=== PATIENT | male | born 1950 ===

== ENCOUNTER 2017-02-01 12:02 | Day surgery (SDC) | payer BC, OTHER ==
[2017-01-31 09:42] VITALS: BMI 22.1
[2017-02-01] MEDS ORDERED: PROPOFOL 20 ML ONE (14:29)
[2017-02-01] MEDS ORDERED: LIDOCAINE HCL/PF 2% SDV 5ML VIAL ONE (14:29)
[2017-02-01] MEDS ORDERED: DEXAMETHASONE SOD PHOSPHATE 4 MG/1 ML VIAL ONE ×2 (14:49→15:37)
[2017-02-01] MEDS ORDERED: ONDANSETRON 4 MG/2 ML VIAL ONE (14:49)
[2017-02-01] MEDS ORDERED: LIDOCAINE HCL 1%, 10 MG/ML (20ML VIAL) ONE (15:01)
[2017-02-01] MEDS ORDERED: MIDAZOLAM HCL 2 MG/2 ML SINGLE DOSE VIAL ONE (15:10)
[2017-02-01] MEDS ORDERED: LIDOCAINE HCL 2% JELLY (5 ML/TUBE) TP ONE ×2 (15:30→16:13)
[2017-02-01] MEDS ORDERED: NITROGLYCERIN 2% OINTMENT - 1GM PACKET TD ONE ×2 (15:30→16:13)
[2017-02-01] MEDS ORDERED: ePHEDrine SULFATE 50 MG/1 ML AMPULE ONE (15:43)
[2017-02-01] MEDS ORDERED: LIDOCAINE HCL 1%, 10 MG/ML (20ML VIAL) IJ ONE (15:47)
[2017-02-01] MEDS ORDERED: GLYCOPYRROLATE 0.2 MG/1 ML VIAL ONE (15:48)
--- NOTE | 2017-02-01 16:26 | OP ---
Operative Note - Note: Operative Date: 02/01/17 Pre-Operative Diagnosis: hemorrhoids grade 3-4 Operation: EUA/ hemorrhoidectomy Post-Operative Diagnosis: Same as Pre-op Surgeon: Yoshi Black Anesthesia: General Specimens Removed: hemorrhoid tissue Estimated Blood Loss (mls): 5 Operative Report Dictated: Yes
[2017-02-01] MEDS ORDERED: OXYCODONE/APAP 5/325MG COMBO TABLET PO PRN (16:29)
[2017-02-01] MEDS ORDERED: KETOROLAC TROMETHAMINE 30 MG/1 ML VIAL IVPUSH PRN (16:29)
[2017-02-01] MEDS ORDERED: oxyCODONE HCL 5 MG TABLET PO PRN (16:34)
[2017-02-01] MEDS ORDERED: ACETAMINOPHEN 325 MG TABLET (FP) PO PRN (16:34)
[2017-02-01] MEDS ORDERED: KETOROLAC TROMETHAMINE 30 MG/1 ML VIAL ONE (17:28)
[2017-02-01 17:46] VITALS: TEMP 97.5
[2017-02-01 18:51] VITALS: BP 110/74; PULSE 66
--- NOTE | 2017-02-03 13:20 | PATH ---
Surgical Pathology Report Patient Name: CONNOR RIVERS Med. Rec. #: [id number] /Age/Gender: 1950 (Age: 67) / M Account: [id number] Location: AMBULATORY SURG Taken: 02/01/2017 Received: 02/02/2017 Reported: 02/03/2017 Physicians: Yoshi Black M.D. Specimen(s) Received HEMORRHOIDS Clinical History Hemorrhoids Final Diagnosis HEMORRHOIDS, HEMORRHOIDECTOMY: BENIGN SQUAMOUS MUCOSA WITH DILATED ENGORGED BLOOD VESSELS CONSISTENT WITH HEMORRHOIDS. Electronically Signed Teddy Taylor M.D. Gross Description Received in formalin labeled "hemorrhoids" is a 3.5 x 1.4 x 1.0 cm portion of marlow, blood engorged tissue, consistent with hemorrhoids. Soil Analyst sections are submitted in one cassette. /02/02/2017 saudi/02/02/2017
--- NOTE | 2017-02-24 11:26 | OP ---
DATE OF OPERATION: 02/01/2017 PREOPERATIVE DIAGNOSIS: Hemorrhoids, bleeding, grade 3 hemorrhoids. POSTOPERATIVE DIAGNOSIS: Hemorrhoids, bleeding, grade 3 hemorrhoids. PROCEDURE: Examination under anesthesia, anoscopy, hemorrhoidectomy. SURGEON: Yoshi Fallon MD COMPLICATIONS: None. BLEEDING: Minimal. The patient tolerated the procedure well. 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 He underwent an evaluation in the office and discussed the options and the associated risks and complications. He agreed to proceed with partial hemorrhoidectomy. He was taken to the operating room for the proposed procedure. DESCRIPTION OF PROCEDURE: Informed consent was obtained. Medical clearance was obtained. The patient was placed in the supine position. After induction of general anesthesia, he was positioned in prone jackknife position, and he was prepped and draped in the usual sterile fashion. Digital exam was first performed, and the anoscopic evaluation was done, which revealed large, grade 3 hemorrhoids in both the right and left sides at approximately 4 o'clock and 8 o'clock. The large one on the right side was then excised with a formal hemorrhoidectomy. Using the scalp, incision was made in the perineal skin in the elliptical fashion and carried through into the anal mucosa, and the dissection of the subcutaneous tissue as well as the hemorrhoidal vein was performed using LigaSure, which was taken down to its base and ligated. A 2-0 chromic suture was used in a continuous fashion to reapproximate the anal rectal mucosa up to the dentate line. The skin was left open for drainage. On the left side, a large hemorrhoid was heat thrombosed and left in place. At this point, a sterile dressing was applied, and the patient was returned to the recovery room awake, alert, in stable condition. He tolerated the procedure well. YOSHI FALLON M.D. [id number]
== END 2017-02-01 18:49 | disposition home or self-care (01) ==
LOC: JASUSAT 12:02
PROVIDERS: ATTEND Surgery
PROC: 06BY0ZC Excision of Hemorrhoidal Plexus, Open Approach (ICD-10-PCS; principal; 2017-02-01 12:00)
DX: K64.2 Third degree hemorrhoids (principal)
CPT/HCPCS: 88304-TC; 94760